=== PATIENT | male | born 1995 | race Two or more races ===

== ENCOUNTER 2024-09-17 19:46 | Emergency (ER) | payer MEDICAID, OTHER ==
[~2024-09-17] VITALS: Ht 177.8 cm; Wt 73.7 kg
[2024-09-17 20:19] VITALS: BP 135/82; PULSE 60; RESP 18; TEMP 98.3; O2SAT 97
[2024-09-17] MEDS: BENZOCAINE (DENTAL) 20 % SPRAY 60ML MT ONE (20:39)
[2024-09-17] MEDS: cefTRIAXone SOD 1,000 MG VL IM ONE (20:39)
[2024-09-17] MEDS ORDERED: IBUP-1456 PO (20:40)
[2024-09-17] MEDS ORDERED: CLIN1CAP70 PO (20:40)
--- NOTE | 2024-09-17 20:41 | ED.PDOC ---
Eye-HPI HPI Comments 29-year-old male presents to ER with complaints of left upper toothache pain x3 days. Patient reports that he has been experiencing left upper toothache pain x3 days with associated mild left-sided facial swelling x1 day. Reports that he recently finished amoxicillin antibiotics for a right-sided dental infection three days ago. He rates his current left upper toothache pain a 6/10 with radiation towards the left side of face. Patient presents to ER ambulatory on arrival, with steady gait, in no distress and states he does have an appointment with a dentist in five days. Denies fever, headache, nausea/vomiting or any further symptoms/complaints Chief Complaint: Tooth Pain Time Seen by MD: 19:49 Primary Care Provider: UNKNOWN Reviewed Notes: Nurses Notes, Medications, Allergies Allergies: Coded Allergies: NO KNOWN ALLERGIES (Unverified , 09/17/24) Home Meds Active Scripts Ibuprofen (Ibuprofen) 800 Mg Tab, 1 TAB PO TID PRN, #30 TAB 0 Refills Prov:LAVELLE TOUSSAINT 09/17/24 Clindamycin Hcl (Clindamycin Hcl) 300 Mg Cap, 300 MG PO QID for 7 Days, #28 CAP 0 Refills Prov:LAVELLE TOUSSAINT 09/17/24 Information Source: Patient Mode of Arrival: Ambulatory Past Medical History PAST MEDICAL HISTORY: Denies Surgical History: Denies all surgeries Family History Family History: Unknown Social History Smoker: Non-Smoker Alcohol: Denies ETOH Use Drugs: Marijuana Lives In: Home Constitutional: denies: chills, diaphoresis, fatigue, fever, malaise, sweats, weakness, others EENTM: reports: others ( STATED IN HPI) Respiratory: denies: cough, hemoptysis, orthopnea, SOB at rest, shortness of breath, SOB with excertion, stridor, wheezing, others Cardiovascular: denies: chest pain, dizzy spells, diaphoresis, Dyspnea on exe rtion, edema, irregular heart beat, left arm pain, lightheadedness, palpitations, PND, syncope, others Gastrointestinal: denies: abdomen distended, abdominal pain, blood streaked bowels, constipated, diarrhea, dysphagia, difficulty swallowing, hematemesis, melena, nausea, poor appetite, poor fluid intake, rectal bleeding, rectal pain, vomiting, others Genitourinary: denies: burning, dysuria, flank pain, frequency, hematuria, incontinence, penile discharge, penile sore, pain, testicle pain, testicle swelling, urgency, others Neurological: denies: dizziness, fainting, headache, left sided numbness, left sided weakness, numbness, paresthesia, pre-existing deficit, right sided numbness, right sided weakness, seizure, speech problems, tingling, tremors, weakness, others Musculoskeletal: denies: back pain, gout, joint pain, joint swelling, muscle pain, muscle stiffness, neck pain, others Integumetry: reports: others ( STATED IN HPI) Allergic/Immunocompromised: denies: Difficulty Healing, Frequent Infections, Hives, Itching, others Hematologic/Lymphatic: denies: anemia, blood clots, easy bleeding, easy bruising, swollen glands, others Endocrine: denies: excessive hunger, excessive sweating, excessive thirst, excessive urination, flushing, intolerance to cold, intolerance to heat, unexplained weight gain, unexplained weight loss, others Psychiatric: denies: anxiety, bipolar disorder, depression, hopeless, panic disorder, schizophrenia, sleepless, suicidal, others Physical Exam General Appearance: No Apparent Distress HEENT: PERRL/EOMI, Pharynx Normal, TMs Normal, Other (BROKEN TOOTH NUMBER # 12 NOTED WITH MILD ASSOCIATED SWELLING/ERYTHEMA TO GUMS APPRECIATED WITHOUT BLEEDING. MINIMAL LEFT-SIDED FACIAL SWELLING ALSO NOTED. 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 Was a procedure done?: No Sedation Sedation?: No EENT DIFF Eye: N/A Mouth: Thrush, Other (DENTAL ABSCESS, MISAEL'S ANGINA) X-Ray, Labs, Meds, VS Vital Signs Date Time Temp Pulse Resp B/P (MAP) Pulse Ox O2 Delivery O2 Flow Rate FiO2 4/16/25 20:19 60 18 97 Room Air 09/17/24 20:19 98.3 60 18 135/82 (99) 97 98.3 09/17/24 20:10 98.3 60 18 135/82 (99) 97 98.3 Current Medications Medications (Trade) Dose Ordered Sig/Tex Route Start Time Stop Time Status Last Admin Ceftriaxone Sodium (Rocephin) 1,000 mg ONCE ONCE IM 09/17/24 20:30 09/17/24 20:31 DC 09/17/24 20:39 Benzocaine (Hurricaine [place]) 1 spr ONCE ONCE MT 09/17/24 20:30 09/17/24 20:31 DC 09/17/24 20:39 ROCEPHIN 1 G IM ORDERED HURRICANE SPRAY ORDERED, PATIENT EDUCATED ON PROPER USE/DOSAGE CANNABIS CESSATION DISCUSSED AND ADVISED ADVISED TO FOLLOW UP WITH PCP AND DENTIST IN 1-2 DAYS PATIENT VERBALIZED UNDERSTANDING AND AGREEABLE WITH CURRENT PLAN OF CARE ADVISED TO RETURN TO ER IMMEDIATELY IF SYMPTOMS WORSEN Time of 1ST Reevaluation: 20:12 Reevaluation 1ST: N/A Patient Education/Counseling: Diagnosis, Treatment, Prognosis, Need For Follow Up Family Education/Counseling: No Family Present Departure 1 Departure Time of Disposition: 20:32 Impression: Primary Impression: Dental infection Additional Impression: Broken tooth Qualified Codes: S02.5XXA - Fracture of tooth (traumatic), initial encounter for closed fracture Disposition: 01 HOME / SELF CARE / HOMELESS Condition: Stable e-Prescriptions Ibuprofen (Ibuprofen) 800 Mg Tab 1 TAB PO TID PRN, #30 TAB 0 Refills Prov: LAVELLE TOUSSAINT 09/17/24 Clindamycin Hcl (Clindamycin Hcl) 300 Mg Cap 300 MG PO QID for 7 Days, #28 CAP 0 Refills Prov: LAVELLE TOUSSAINT 09/17/24 Discharged With: Self Critical Care Note Critical Care Time?: No Stability Stability form required: No Heart Score Heart Score: Heart Score Response (Comments) Value History N/A 0 EKG N/A 0 Age N/A 0 Risk Factors N/A 0 Troponin N/A 0 Total 0 LAVELLE TOUSSAINT Sep 17, 2024 20:41
== END 2024-09-17 20:48 | disposition home or self-care (01) ==
LOC: ER 19:46
DX: S02.5XXA Fracture of tooth (traumatic), initial encounter for closed fracture (principal); K04.7 Periapical abscess without sinus; F15.90 Other stimulant use, unspecified, uncomplicated; Z79.899 Other long term (current) drug therapy; X58.XXXA Exposure to other specified factors, initial encounter; Y93.89 Activity, other specified; Y92.89 Other specified places as the place of occurrence of the external cause; Y99.8 Other external cause status
CPT/HCPCS: 96372; 99283; J0696